=== PATIENT | female | born 1965 | race African-American/Black ===

== ENCOUNTER 2025-07-17 20:30 | Emergency (ER) | payer MEDICAID, OTHER ==
[~2025-07-17] VITALS: Ht 167.6 cm; Wt 84.6 kg
[2025-07-17 20:36] VITALS: O2SAT 99
[2025-07-17] MEDS ORDERED: CLONIDINE 0.2MG TABLET PO ONE (21:45)
[2025-07-17 21:48] LABS: BASOPHILS % 0.3 % (0.0-2.0); EOSINOPHILS % 2.1 % (0.0-5.0); HEMATOCRIT. 39.5 % (36.0-48.0); HEMOGLOBIN. 12.9 g/dL (12.0-16.0); LYMPHOCYTES % 24.7 % (20.0-50.0); MEAN PLATELET VOLUME 8.6 fl (7.4-10.4); MONOCYTES % 10.1 % (2.0-8.0); NEUTROPHILS % 62.8 % (40.0-76.0); PLATELET 207 x1000/uL (130-400); RED BLOOD CELL COUNT 4.26 mill/uL (4.2-5.4); RED CELL DISTRIBUTION WIDTH 12.9 % (11.6-14.6)
[2025-07-17 22:05] LABS: TROPONIN I HIGH SENSITIVITY 6 ng/L (3.0-34)
[2025-07-17] MEDS: ONDANSETRON HCL 4MG/2ML INJ IV ONE (22:34)
[2025-07-17] MEDS: KETOROLAC 30MG/ML VIAL IV ONE (22:34)
[2025-07-17] MEDS: FAMOTIDINE 20MG/2ML VIAL IV ONE (22:34)
[2025-07-17] MEDS: CLONIDINE 0.1MG TABLET PO NR (22:35)
[2025-07-17] MEDS: LOSARTAN 50 MG TABLET PO ONE (22:35)
[2025-07-17] MEDS: DICYCLOMINE HCL 10MG/ML 2ML VIAL IM STA (22:35)
[2025-07-17 22:52] LABS: CREATININE 0.8 mg/dL (0.6-1.0); UREA NITROGEN BLOOD 14 mg/dL (9-23)
[2025-07-17 22:53] LABS: PROTEIN TOTAL 6.6 g/dL (6.0-8.3)
[2025-07-17 22:54] LABS: ASPARTATE AMINOTRANSFERASE 14 IU/L (<34); BILIRUBIN DIRECT 0.1 mg/dL (<=3.0)
[2025-07-17 22:55] LABS: BILIRUBIN TOTAL 0.5 mg/dL (0.1-1.0)
[2025-07-17] MEDS ORDERED: HYDROCODONE/ACETAMINOPHEN 7.5/325MG TABLET PO ONE (23:30)
[2025-07-18] VITALS: TEMP 36.9; O2SAT 98
[2025-07-18 00:19] VITALS: BP 169/90; PULSE 80; RESP 18
[2025-07-18] MEDS: HYDROCODONE/ACETAMINOPHEN 7.5/325MG TABLET PO NR (00:19)
== END 2025-07-18 00:37 | disposition home or self-care (01) ==
LOC: ER 20:30
DX: K52.9 Noninfective gastroenteritis and colitis, unspecified (principal); I10 Essential (primary) hypertension; J45.909 Unspecified asthma, uncomplicated
CPT/HCPCS: 99285; 74176; 96374; 96375; 71045; 80076; 80048; 83690; 85025; 84484; 36415; 93005; 96372; J1885; J0500; J1308; J2405